=== PATIENT | female | born 1985 | race Caucasian/White ===

== ENCOUNTER 2017-04-08 13:41 | Emergency (ER) | payer OTHER ==
[2017-04-08 13:52] VITALS: BP 123/61; PULSE 77; TEMP 98.7; BMI 26.1
[2017-04-08 14:49] LABS: URINE APPEARANCE CLEAR; URINE BILIRUBIN NEGATIVE (NEGATIVE); URINE BLOOD NEGATIVE (NEGATIVE); URINE COLOR STRAW; URINE GLUCOSE (UA) NEGATIVE (NEGATIVE); URINE KETONE NEGATIVE (NEGATIVE); URINE LEUK ESTERASE NEGATIVE (NEGATIVE); URINE NITRITE NEGATIVE (NEGATIVE); URINE PROTEIN NEGATIVE (NEGATIVE); URINE UROBILINOGEN NEGATIVE E.U./dl (0.2-1.0)
[2017-04-08] MEDS ORDERED: KETOROLAC TROMETHAMINE 60 MG/2 ML VIAL IM ONE (15:39)
[2017-04-08] MEDS ORDERED: diazePAM 5 MG TABLET PO ONE (15:39)
--- NOTE | 2017-04-08 15:40 | PDOC ---
History of Present Illness - General Chief Complaint: Back Pain Stated Complaint: PAIN Time Seen by Provider: 04/08/17 15:13 History Source: Patient Exam Limitations: No Limitations - History of Present Illness Initial Comments: 04/08/17 15:43 My chief complaint: Lower back pain History of present illness: Patient is a 32-year-old female with no significant medical problems here today with lower back pain for one week. 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 Patient reports that back pain currently is an 8 out of 10. Patient has not been taking anything for pain. She has been going to the chiropractor for the last 4 days if pain is not relieved. Patient reports the pain is worse when trying to get up from a seated or lying position. Patient is unable to stand up erectly due to muscle spasm lower back. She reports some radiation down posterior legs without any saddle anesthesia or numbness of legs. Patient denies any incontinency. Patient reports this is the second time she has had back pain like this. 04/08/17 16:18 Occurred: reports: last week Severity: reports: moderate Pain Location: reports: back (lower back with radiation down legs ) Method of Injury: Yes: unknown Modifying Factors: improves with: None Loss of Consciousness: no loss of consciousness Past History - Past Medical History Allergies/Adverse Reactions: Allergies Allergy/AdvReac Type Severity Reaction Status Date / Time No Known Allergies Allergy Verified 04/08/17 13:50 Home Medications: Ambulatory Orders Cyclobenzaprine HCl [Flexeril 10 mg] 10 mg PO Q8H PRN #21 tablet 04/08/17 Ibuprofen [Motrin -] 600 mg PO Q6H PRN #18 tablet 04/08/17 Asthma: No Cancer: No Cardiac Disorders: No Diabetes: No HTN: No Seizures: No Thyroid Disease: No - Immunization History Immunization Up to Date: Yes - Psycho/Social/Smoking Cessation Hx Anxiety: No Suicidal Ideation: No Smoking History: Never smoked Have you smoked in the past 12 months: No Hx Alcohol Use: No Drug/Substance Use Hx: No Substance Use Type: None Hx Substance Use Treatment: No Review of Systems - Review of Systems Able to Perform ROS?: Yes Constitutional: No: Symptoms Reported HEENTM: No: Symptoms Reported Respiratory: No: Symptoms reported Cardiac (ROS): No: Symptoms Reported Musculoskeletal: Yes: Back Pain (lumbar paraspinal muscles ), Muscle Pain (with lumbar spasm ) Integumentary: No: Symptoms Reported Neurological: No: Symptoms reported *Physical Exam - Vital Signs Last Vital Signs Temp Pulse Resp BP Pulse Ox 98.7 F 77 18 123/61 99 04/08/17 13:50 04/08/17 13:50 04/08/17 13:50 04/08/17 13:50 04/08/17 13:50 - Physical Exam General Appearance: Yes: Appropriately Dressed Respiratory/Chest: positive: Lungs Clear, Normal Breath Sounds Cardiovascular: positive: Regular Rhythm, Regular Rate, S1, S2 Musculoskeletal: positive: Normal Inspection, Decreased Range of Motion (at waist), Muscle Spasm (b/l paraspinal muscle lumbar). negative: CVA Tenderness, CVA Tenderness (R), CVA Tenderness (L), Vertebral Tenderness Extremity: positive: Normal Capillary Refill, Normal Inspection, Normal Range of Motion Integumentary: positive: Normal Color Neurologic: positive: Alert, Normal Response, Motor Strength 5/5 (legs), Respond to painful stimul (legs), Responsive, Other (negative SLR b/l ). negative: Numbness, Sensory Deficit (legs) ED Treatment Course - ADDITIONAL ORDERS Additional order review: Laboratory Results 04/08/17 14:42 Urine Color Straw Urine Appearance Clear Urine pH 7.0 D Urine Protein Negative Urine Glucose (UA) Negative Urine Ketones Negative Urine Blood Negative Urine Nitrite Negative Urine Bilirubin Negative Urine Urobilinogen Negative Ur Leukocyte Esterase Negative Urine HCG, Qual Negative Medical Decision Making - Medical Decision Making 04/08/17 15:46 Patient is a 32-year-old female with no significant medical problems here today with lower back pain for one week. 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 Patient reports that back pain currently is an 8 out of 10. Patient has not been taking anything for pain. She has been going to the chiropractor for the last 4 days if pain is not relieved. Patient reports the pain is worse when trying to get up from a seated or lying position. Patient is unable to stand up erectly due to muscle spasm lower back. She reports some radiation down posterior legs without any saddle anesthesia or numbness of legs. Patient denies any incontinency. Patient reports this is the second time she has had back pain like this. low back pain with muscles spasm and radiculopathy down both legs Plan: Toradol 60 mg IM now Valium 5 mg po now Laboratory Tests 04/08/17 14:42 Urine Color Straw Urine Appearance Clear Urine pH 7.0 D Ur Specific Yoder Pending Urine Protein Negative Urine Glucose (UA) Negative Urine Ketones Negative Urine Blood Negative Urine Nitrite Negative Urine Bilirubin Negative Urine Urobilinogen Negative Ur Leukocyte Esterase Negative Urine HCG, Qual Negative 04/08/17 16:18 feeling better will discharge on flexeril 10 mg q 8 hr prn muscle spasm, ibuprofen 600 mg every 6 hrs prn pain ortho follow up *DC/Admit/Observation/Transfer Diagnosis at time of Disposition: Acute radicular low back pain, Muscle spasm of back - Discharge Dispostion Disposition: HOME Condition at time of disposition: Stable - Patient Instructions Additional Instructions: Follow-up with orthopedist in 2 days for further evaluation Use proper lifting technique sneaks and turning technique's as demonstrated emergency room Return to emergency room for worsening pain and lower back or legs or any numbness of legs or groin or private area Patient voiced understanding of discharge instructions and all questions were answered Seguimiento con ortopedista en 2 lopez para mir evaluacin posterior Utilice la tcnica de elevacin apropiada y las tcnicas de giro britt se demostr la pedro luis de emergencia Regreso a la pedro luis de emergencias para empeorar el dolor y bajar la espalda o las piernas o cualquier entumecimiento de las piernas o la leola o vinayak privada Comprensin del paciente sobre las instrucciones de mica y todas las preguntas fueron contestadas
[2017-04-08] MEDS ORDERED: diazePAM 5 MG TABLET ONE (15:42)
[2017-04-08] MEDS ORDERED: KETOROLAC TROMETHAMINE 30 MG/1 ML VIAL ONE (15:42)
== END 2017-04-08 16:47 | disposition home or self-care (01) ==
LOC: JERFT 13:41
PROC: 3E0233Z Introduction of Anti-inflammatory into Muscle, Percutaneous Approach (ICD-10-PCS; principal; 2017-04-08)
DX: M54.16 Radiculopathy, lumbar region (principal); M62.830 Muscle spasm of back
CPT/HCPCS: 81003; 84703; 99281-25

== ENCOUNTER 2017-05-12 06:58 | Emergency (ER) | payer OTHER ==
[2017-05-12 07:18] VITALS: BP 117/71; PULSE 68; TEMP 98.3; BMI 26.1
--- NOTE | 2017-05-12 08:39 | PDOC ---
History of Present Illness - General Chief Complaint: Rash Stated Complaint: RASH Time Seen by Provider: 05/12/17 08:29 History Source: Patient Exam Limitations: No Limitations - History of Present Illness Initial Comments: 05/12/17 08:35 32-year-old female with worsening itchy rash for the past 5 days. Patient states initially started on her legs and now spread to her torso causing her difficulty to sleep. Patient denies fever, chills but states was outside doing yardwork 2 days prior. Timing/Duration: getting worse Severity: mild Past History - Past Medical History Allergies/Adverse Reactions: Allergies Allergy/AdvReac Type Severity Reaction Status Date / Time No Known Allergies Allergy Verified 05/12/17 07:12 Home Medications: Ambulatory Orders Cyclobenzaprine HCl [Flexeril 10 mg] 10 mg PO Q8H PRN #21 tablet 04/08/17 Ibuprofen [Motrin -] 600 mg PO Q6H PRN #18 tablet 04/08/17 Diphenhydramine HCl [Benadryl -] 25 mg PO Q8H PRN #21 capsule 05/12/17 Prednisone [Deltasone -] 40 mg PO DAILY #8 tablet 05/12/17 Asthma: No Cancer: No Cardiac Disorders: No Diabetes: No HTN: No Seizures: No Thyroid Disease: No - Immunization History Immunization Up to Date: Yes - Psycho/Social/Smoking Cessation Hx Anxiety: No Suicidal Ideation: No Smoking History: Never smoked Have you smoked in the past 12 months: No Information on smoking cessation initiated: No Hx Alcohol Use: No Drug/Substance Use Hx: No Substance Use Type: None Hx Substance Use Treatment: No Patient Lives Alone: No Lives with/in: spouse/SO Review of Systems - Review of Systems Able to Perform ROS?: Yes Constitutional: No: Symptoms Reported Musculoskeletal: No: Symptoms Reported Integumentary: Yes: Pruritus *Physical Exam - Vital Signs Last Vital Signs Temp Pulse Resp BP Pulse Ox 98.3 F 68 18 117/71 100 05/12/17 07:12 05/12/17 07:12 05/12/17 07:12 05/12/17 07:12 05/12/17 07:12 - Physical Exam General Appearance: Yes: Nourished, Appropriately Dressed. No: Apparent Distress HEENT: positive: Pharynx Normal Respiratory/Chest: positive: Lungs Clear, Normal Breath Sounds. negative: Respiratory Distress, Accessory Muscle Use Cardiovascular: positive: Regular Rhythm, Regular Rate. negative: Murmur Extremity: positive: Normal Inspection Integumentary: positive: Rash (crusted and scattered vesicles to bilateral upper legs, arms, and abdomen/chest/neck. areas of linear patterns noted arms), Other (no signs and symptoms of infection) Neurologic: positive: Motor Strength 5/5 (ambulatory) Medical Decision Making - Medical Decision Making 05/12/17 08:38 Patient with pruritic rash for the past 5 days worsening in severity now spreading. Patient appears to have poison mary ellen. Patient will be ordered for prednisone and Benadryl for discharge. *DC/Admit/Observation/Transfer Diagnosis at time of Disposition: Poison mary ellen dermatitis - Discharge Dispostion Disposition: HOME Condition at time of disposition: Good - Prescriptions Prescriptions: Diphenhydramine HCl [Benadryl -] 25 mg PO Q8H PRN #21 capsule PRN Reason: For Itching Prednisone [Deltasone -] 40 mg PO DAILY #8 tablet - Patient Instructions Printed Discharge Instructions: DI for Poison Mary Ellen Allergy Additional Instructions: Please take medication as prescribed. please wash her hands recently. please avoid itching. Stay in cold cold places to avoid irritation
== END 2017-05-12 09:00 | disposition home or self-care (01) ==
LOC: JERFT 06:58 → JER 06:58 → JERFT 09:00
DX: L23.7 Allergic contact dermatitis due to plants, except food (principal)
CPT/HCPCS: 99281-25

== ENCOUNTER 2018-02-20 20:23 | Emergency (ER) | payer OTHER ==
[2018-02-20 20:35] VITALS: BP 110/57; PULSE 84; TEMP 98.2; BMI 27.4
--- NOTE | 2018-02-20 20:35 | PDOC ---
Rapid Medical Evaluation Time Seen by Provider: 02/20/18 20:29 Medical Evaluation: Allergies Allergy/AdvReac Type Severity Reaction Status Date / Time No Known Allergies Allergy Verified 05/12/17 07:12 02/20/18 20:29 I have performed a brief in-person evaluation of this patient. The patient presents with a chief complaint of diarrhea, nausea and rash. States rash on legs x 2 days and nausea and diarrhea this am. Reports a little abdominal discomfort. Pertinent physical exam finding are NAD lungs clear bilaterally +bowel sounds, mild tenderness with deep palpation I have ordered the following: labs The patient will proceed to the ED for further evaluation.
[2018-02-20] MEDS ORDERED: SODIUM CHLORIDE 1,000 ML IV STA (21:03)
[2018-02-20] MEDS ORDERED: LORATADINE 10 MG TABLET PO ONE (21:04)
[2018-02-20] MEDS ORDERED: LORATADINE 10 MG TABLET ONE (21:15)
[2018-02-20 21:34] LABS: BASO % 0.4 % (0-2.0); EOS % 2.6 % (0-4.5); HEMATOCRIT 38.2 % (32.4-45.2); HEMOGLOBIN 13.4 GM/dL (10.7-15.3); LYMPH % 26.4 % (8-40); MCH 30.3 pg (25.7-33.7); MCHC 35.1 g/dl (32.0-36.0); MEAN CELL VOLUME 86.3 fl (80-96); MEAN PLT VOLUME 8.8 fl (7.5-11.1); MONO % 7.4 % (3.8-10.2); NEUT % 63.2 % (42.8-82.8); PLATELET COUNT 183 K/MM3 (134-434); RBC 4.42 M/mm3 (3.60-5.2); RDW 13.2 % (11.6-15.6); WHITE BLOOD COUNT 6.5 K/mm3 (4.0-10.0)
[2018-02-20 22:17] LABS: ALBUMIN 4.1 g/dl (3.4-5.0); ANION GAP 4 (8-16); BILIRUBIN,TOTAL 0.6 mg/dL (0.2-1.0); BLOOD UREA NITROGEN 17 mg/dL (7-18); CHLORIDE 110 mmol/L (98-107); CO2 26 mmol/L (21-32); CREATININE 0.5 mg/dL (0.55-1.02); GLUCOSE,RANDOM 85 mg/dL (74-106); SGPT/ALT 84 U/L (12-78); SODIUM 140 mmol/L (136-145); TOT PROT 7.3 g/dl (6.4-8.2)
[2018-02-20 22:18] LABS: ALK PHOS 89 U/L (45-117); POTASSIUM 3.7 mmol/L (3.5-5.1)
[2018-02-20 22:19] LABS: SGOT/AST 46 U/L (15-37)
--- NOTE | 2018-02-20 22:34 | PDOC ---
History of Present Illness - General History Source: Patient Exam Limitations: No Limitations - History of Present Illness Initial Comments: 02/20/18 22:34 The patient is a 33 year old female with no significant PMH who presents to the emergency department with 1 day of nausea and diarrhea and 2 days of LE rash. The patient reports a sudden onset of diarrhea this morning with associated nausea and diffuse abdominal discomfort. She describes her rash as redness and itching bilaterally on her lower extremities along the calves. The patient denies sick contacts. She denies allergies to food or medications. She denies fevers or chills. She denies vomiting. The patient denies chest pain, shortness of breath, headache and dizziness. Denies dysuria, frequency, urgency and hematuria. Allergies: NKA Past surgical history: x2. Social history: No reported cigarette, alcohol, or drug use. PCP: None reported. <Bc Gayle - Last Filed: 02/20/18 22:34> - General History Source: Patient <Dago Malone - Last Filed: 02/21/18 01:04> - General Chief Complaint: Pain Stated Complaint: RASH Time Seen by Provider: 02/20/18 20:29 Past History <Bc Gayle - Last Filed: 02/20/18 22:34> - Past Medical History Asthma: No Cancer: No Cardiac Disorders: No COPD: No Diabetes: No HTN: No Seizures: No Thyroid Disease: No - Immunization History Immunization Up to Date: Yes - Suicide/Smoking/Psychosocial Hx Smoking History: Never smoked Have you smoked in the past 12 months: No Information on smoking cessation initiated: No Hx Alcohol Use: No Drug/Substance Use Hx: No Substance Use Type: None Hx Substance Use Treatment: No <Dago Malone - Last Filed: 02/21/18 01:04> - Past Medical History Allergies/Adverse Reactions: Allergies Allergy/AdvReac Type Severity Reaction Status Date / Time No Known Allergies Allergy Verified 02/20/18 20:35 Home Medications: Ambulatory Orders Cyclobenzaprine HCl [Flexeril 10 mg] 10 mg PO Q8H PRN #21 tablet 04/08/17 Ibuprofen [Motrin -] 600 mg PO Q6H PRN #18 tablet 04/08/17 Diphenhydramine HCl [Benadryl -] 25 mg PO Q8H PRN #21 capsule 05/12/17 predniSONE [Deltasone -] 40 mg PO DAILY #8 tablet 05/12/17 Famotidine [Pepcid] 40 mg PO DAILY #30 tablet 02/21/18 Ibuprofen [Motrin] 600 mg PO TID #30 tablet 02/21/18 Ondansetron [Zofran *Odt*] 4 mg SL TID #30 od.tablet 02/21/18 Review of Systems - Review of Systems Able to Perform ROS?: Yes Comments:: 02/20/18 22:34 CONSTITUTIONAL: Absent: fever, chills, diaphoresis, generalized weakness, malaise, loss of appetite HEENT: Absent: rhinorrhea, nasal congestion, throat pain, throat swelling, difficulty swallowing, mouth swelling, ear pain, eye pain, visual Changes CARDIOVASCULAR: Absent: chest pain, syncope, palpitations, irregular heart rate, lightheadedness , peripheral edema RESPIRATORY: Absent: cough, shortness of breath, dyspnea with exertion, orthopnea, wheezing, stridor, hemoptysis GASTROINTESTINAL: (+) Nausea. (+) Diarrhea. Absent: abdominal pain, abdominal distension, nausea, vomiting, diarrhea, constipation, melena, hematochezia GENITOURINARY: Absent: dysuria, frequency, urgency, hesitancy, hematuria, flank pain, genital pain MUSCULOSKELETAL: Absent: myalgia, arthralgia, joint swelling SKIN: (+) Bilateral LE rash with associated itching. Absent: pallor. HEMATOLOGIC/IMMUNOLOGIC: Absent: easy bleeding, easy bruising, lymphadenopathy, frequent infections ENDOCRINE: Absent: unexplained weight gain, unexplained weight loss, heat intolerance, cold intolerance NEUROLOGIC: Absent: headache, focal weakness or paresthesias, dizziness, unsteady gait, seizure, mental status changes, bladder or bowel incontinence PSYCHIATRIC: Absent: anxiety, depression, suicidal or homicidal ideation, hallucinations. <Bc Gayle - Last Filed: 02/20/18 22:34> *Physical Exam - Vital Signs Last Vital Signs Temp Pulse Resp BP Pulse Ox 98.2 F 84 18 110/57 100 02/20/18 20:31 02/20/18 20:31 02/20/18 20:31 02/20/18 20:31 02/20/18 20:31 - Physical Exam Comments: 02/20/18 22:34 GENERAL: Well developed, well nourished. Awake and alert. No acute distress. HEENT: Normocephalic, atraumatic. PERRLA, EOMI. No conjunctival pallor. Sclera are non- icteric. Moist mucous membranes. Oropharynx is clear. NECK: Supple. Full ROM. No JVD. Carotid pulses 2+ and symmetric, without bruits. No thyromegaly. No lymphadenopathy. CARDIOVASCULAR: Regular rate and rhythm. No murmurs, rubs, or gallops. Distal pulses are 2+ and symmetric. PULMONARY: No evidence of respiratory distress. Lungs clear to auscultation bilaterally. No wheezing, rales or rhonchi. ABDOMINAL: (+) Slightly hyperactive bowel sounds. Soft. Non-tender. Non-distended. No rebound or guarding. No organomegaly. Normoactive bowel sounds. MUSCULOSKELETAL Normal range of motion at all joints. No bony deformities or tenderness. No CVA tenderness. EXTREMITIES: No cyanosis. No clubbing. No edema. No calf tenderness. SKIN: (+) Bilateral lower extremity rash, urticarial lesions. Warm and dry. Normal capillary refill. No jaundice. NEUROLOGICAL: Alert, awake, appropriate. Cranial nerves 2-12 intact. No deficits to light touch and temperature in face, upper extremities and lower extremities. No motor deficits in the in face, upper extremities and lower extremities. Normoreflexic in the upper and lower extremities. Normal speech. Toes are downgoing bilaterally. Gait is normal without ataxia. PSYCHIATRIC: Cooperative. Good eye contact. Appropriate mood and affect. <Bc Gayle - Last Filed: 02/20/18 22:34> - Vital Signs Last Vital Signs Temp Pulse Resp BP Pulse Ox 98.2 F 84 18 110/57 100 02/20/18 20:31 02/20/18 20:31 02/20/18 20:31 02/20/18 20:31 02/20/18 20:31 <Dago Malone - Last Filed: 02/21/18 01:04> ED Treatment Course - LABORATORY CBC & Chemistry Diagram: 02/20/18 21:27 02/20/18 21:27 - ADDITIONAL ORDERS Additional order review: Laboratory Results 02/20/18 21:27 Sodium 140 Potassium 3.7 Chloride 110 H Carbon Dioxide 26 Anion Gap 4 L BUN 17 Creatinine 0.5 L Creat Clearance w eGFR > 60 Random Glucose 85 Calcium 8.0 L Total Bilirubin 0.6 AST 46 H ALT 84 H Alkaline Phosphatase 89 Total Protein 7.3 Albumin 4.1 02/20/18 21:27 RBC 4.42 D MCV 86.3 MCHC 35.1 RDW 13.2 MPV 8.8 Neutrophils % 63.2 Lymphocytes % 26.4 D Monocytes % 7.4 Eosinophils % 2.6 D Basophils % 0.4 - Medications Given in the ED: ED Medications Discontinued Medications Generic Name Dose Route Start Last Admin Trade Name Freq PRN Reason Stop Dose Admin Sodium Chloride 1,000 mls @ 1,000 mls/hr 02/20/18 21:03 02/20/18 21:29 Normal Saline - IV 02/20/18 22:02 1,000 mls/hr ASDIR STA Administration Loratadine 10 mg 02/20/18 21:04 02/20/18 21:29 Claritin - PO 02/20/18 21:05 10 mg ONCE ONE Administration <Bc Gayle - Last Filed: 02/20/18 22:34> - LABORATORY CBC & Chemistry Diagram: 02/20/18 21:27 02/20/18 21:27 - ADDITIONAL ORDERS Additional order review: Laboratory Results 02/20/18 21:27 Sodium 140 Potassium 3.7 Chloride 110 H Carbon Dioxide 26 Anion Gap 4 L BUN 17 Creatinine 0.5 L Creat Clearance w eGFR > 60 Random Glucose 85 Calcium 8.0 L Total Bilirubin 0.6 AST 46 H ALT 84 H Alkaline Phosphatase 89 Total Protein 7.3 Albumin 4.1 02/20/18 21:27 RBC 4.42 D MCV 86.3 MCHC 35.1 RDW 13.2 MPV 8.8 Neutrophils % 63.2 Lymphocytes % 26.4 D Monocytes % 7.4 Eosinophils % 2.6 D Basophils % 0.4 - Medications Given in the ED: ED Medications Discontinued Medications Generic Name Dose Route Start Last Admin Trade Name Freq PRN Reason Stop Dose Admin Sodium Chloride 1,000 mls @ 1,000 mls/hr 02/20/18 21:03 02/20/18 21:29 Normal Saline - IV 02/20/18 22:02 1,000 mls/hr ASDIR STA Administration Loratadine 10 mg 02/20/18 21:04 02/20/18 21:29 Claritin - PO 02/20/18 21:05 10 mg ONCE ONE Administration <Dago Malone - Last Filed: 02/21/18 01:04> Medical Decision Making - Medical Decision Making 02/21/18 01:03 Dr. Malone: The scribe's documentation has been prepared under my direction and personally reviewed by me in its entirery. I confirm that the note above accurately reflects all work, treatment, procedures, and medical decision making performed by me. <Dago Malone - Last Filed: 02/21/18 01:04> *DC/Admit/Observation/Transfer - Attestations Scribe Attestion: 02/20/18 22:35 Documentation prepared by Bc Gayle, acting as medical office worker for Dago Malone DO. <Bc Gayle - Last Filed: 02/20/18 22:34> - Discharge Dispostion Admit: No <Dago Malone - Last Filed: 02/21/18 01:04> Diagnosis at time of Disposition: Gallstone (impacted) - Discharge Dispostion Disposition: HOME Condition at time of disposition: Stable - Referrals Referrals: Gino Box MD [Staff Physician] - Trey Patterson MD [Staff Physician] - Campbell Carney MD [Staff Physician] - - Patient Instructions Printed Discharge Instructions: DI for Gallstones Print Language: TELUGU - Post Discharge Activity Forms/Work/School Notes: Back to Work
== END 2018-02-21 01:15 | disposition home or self-care (01) ==
LOC: JER 20:23
PROC: 3E0337Z Introduction of Electrolytic and Water Balance Substance into Peripheral Vein, Percutaneous Approach (ICD-10-PCS; principal; 2018-02-20)
DX: K80.20 Calculus of gallbladder without cholecystitis without obstruction (principal); L50.9 Urticaria, unspecified
CPT/HCPCS: 36415; 76705-TC; 80053; 85025; 96360; 99283-25; J7030

== ENCOUNTER 2018-10-26 19:37 | Emergency (ER) | payer OTHER ==
--- NOTE | 2018-10-26 20:14 | PDOC ---
Rapid Medical Evaluation Medical Evaluation: Allergies Allergy/AdvReac Type Severity Reaction Status Date / Time No Known Allergies Allergy Verified 02/20/18 20:35 10/26/18 20:11 I have performed a brief in-person evaluation of this patient. The patient presents with a chief complaint of:itchy rash to face, arms for 5 days. no vomiting or diff breathing. and daughter with same symptoms. states he is using permetherin cream with no relief. Pertinent physical exam findings:red rash to face, upper neck and arms I have ordered the following:none The patient will proceed to the ED for further evaluation.
[2018-10-26 20:15] VITALS: BP 114/71; PULSE 72; TEMP 98.3; BMI 23.8
[2018-10-26] MEDS ORDERED: diphenhydrAMINE HCL 25 MG CAPSULE (FP) PO ONE ×2 (20:34→20:36)
[2018-10-26] MEDS ORDERED: predniSONE 20 MG TABLET (UD) PO ONE (20:34)
[2018-10-26] MEDS ORDERED: predniSONE 20 MG TABLET (UD) ONE (20:36)
--- NOTE | 2018-10-26 20:41 | PDOC ---
History of Present Illness - General Chief Complaint: Rash Stated Complaint: RASH Time Seen by Provider: 10/26/18 20:23 History Source: Patient Exam Limitations: No Limitations - History of Present Illness Initial Comments: 10/26/18 20:35 3-year-old female presents to ED with a pruritic rash for the past 5 days involving her face her neck or arms and upper torso. Patient states and daughter with similar symptoms which began on Monday. Daughter is being treated with triamcinolone by the metal or wood blocker and hasn't was given permethrin by an ER provider. Both parents states no relief with any of the medications. Parents state 2 days prior to the onset of the rash the daughter was at the grandmother' s house outside but unsure of contact with branches or roots. Timing/Duration: reports: other Severity: Yes: mild Location: reports: extremities, face, torso Respiratory Risk Factors: reports: no cause identified Associated Symptoms: reports: rash Past History - Travel Traveled outside of the country in the last 30 days: No - Past Medical History Allergies/Adverse Reactions: Allergies Allergy/AdvReac Type Severity Reaction Status Date / Time No Known Allergies Allergy Verified 02/20/18 20:35 Home Medications: Ambulatory Orders NK [No Known Home Medication] 10/26/18 Asthma: No Cancer: No Cardiac Disorders: No COPD: No Diabetes: No HTN: No Seizures: No Thyroid Disease: No - Immunization History Immunization Up to Date: Yes - Suicide/Smoking/Psychosocial Hx Smoking History: Never smoked Have you smoked in the past 12 months: No Hx Alcohol Use: No Drug/Substance Use Hx: No Substance Use Type: None Hx Substance Use Treatment: No Patient Lives Alone: No Lives with/in: spouse/SO Review of Systems - Review of Systems Able to Perform ROS?: No Constitutional: No: Symptoms Reported HEENTM: No: Symptoms Reported Respiratory: No: Symptoms reported Cardiac (ROS): No: Symptoms Reported ABD/GI: No: Symptoms Reported : No: Symptoms Reported Musculoskeletal: No: Symptoms Reported Integumentary: Yes: Pruritus, Rash Neurological: No: Symptoms reported *Physical Exam - Vital Signs Last Vital Signs Temp Pulse Resp BP Pulse Ox 98.3 F 72 19 114/71 100 10/26/18 20:11 10/26/18 20:11 10/26/18 20:11 10/26/18 20:11 10/26/18 20:11 - Physical Exam General Appearance: Yes: Nourished, Appropriately Dressed. No: Apparent Distress HEENT: positive: EOMI, SAUMYA, TMs Normal, Pharynx Normal. negative: Pale Conjunctivae Respiratory/Chest: positive: Lungs Clear, Normal Breath Sounds. negative: Respiratory Distress, Accessory Muscle Use Cardiovascular: positive: Regular Rhythm, Regular Rate. negative: Murmur Gastrointestinal/Abdominal: positive: Soft. negative: Tenderness Integumentary: positive: Warm, Rash, Other (erythematous pruritic vesicular/ papular rash to face, neck, arms, and upper torso) Neurologic: positive: Motor Strength 5/5 (ambulatory) Moderate Sedation - Procedure Monitoring Vital Signs: Procedure Monitoring Vital Signs Temperature 98.3 F 10/26/18 20:11 Pulse Rate 72 10/26/18 20:11 Respiratory Rate 19 10/26/18 20:11 Blood Pressure 114/71 10/26/18 20:11 O2 Sat by Pulse Oximetry (%) 100 10/26/18 20:11 Medical Decision Making - Medical Decision Making 10/26/18 20:41 CC: pruritic rash x 5 days Exam: vesicular/ papular rash to body Plan: contact dermatitis . treat w/ dph and benadryl here in the ED *DC/Admit/Observation/Transfer Diagnosis at time of Disposition: Rash - Discharge Dispostion Disposition: HOME - Referrals - Patient Instructions Printed Discharge Instructions: DI for Contact Dermatitis Additional Instructions: Please take benadryl and prednisone as prescribed. Wash hands frequently. Return to the ED if s/s worsen. - Post Discharge Activity
== END 2018-10-26 20:52 | disposition home or self-care (01) ==
LOC: JERFT 19:37
DX: L40.9 Psoriasis, unspecified (principal); L25.9 Unspecified contact dermatitis, unspecified cause
CPT/HCPCS: 99281-25

== ENCOUNTER 2019-08-12 18:58 | Emergency (ER) | payer OTHER ==
[2019-08-12 19:07] VITALS: BP 108/62; PULSE 72; TEMP 98.2; BMI 23.6
--- NOTE | 2019-08-12 19:47 | PDOC ---
History of Present Illness - General Chief Complaint: Rash Stated Complaint: L LEG ITCHY/PAIN Time Seen by Provider: 08/12/19 19:19 - History of Present Illness Initial Comments: 08/12/19 19:42 34-year-old female without comorbidities presents for evaluation of a painful area which is been increasingly expanding and more painful over the last 5 days this area is located on the posterior aspect of the left leg. She denies systemic symptoms. Past History - Past Medical History Allergies/Adverse Reactions: Allergies Allergy/AdvReac Type Severity Reaction Status Date / Time No Known Allergies Allergy Verified 02/20/18 20:35 Home Medications: Ambulatory Orders predniSONE [Deltasone -] 60 mg PO DAILY #15 tablet 10/26/18 Cephalexin [Keflex] 500 mg PO QID #40 capsule 08/12/19 Sulfamethoxazole/Trimethoprim [Bactrim Ds -] 1 tab PO BID #14 tablet 08/12/19 Asthma: No Cancer: No Cardiac Disorders: No COPD: No Diabetes: No HTN: No Seizures: No Thyroid Disease: No - Immunization History Immunization Up to Date: Yes - Psycho Social/Smoking Cessation Hx Smoking History: Never smoked Have you smoked in the past 12 months: No Hx Alcohol Use: No Drug/Substance Use Hx: No Substance Use Type: None Hx Substance Use Treatment: No Review of Systems - Review of Systems Constitutional: No: Fever Integumentary: Yes: Erythema *Physical Exam - Vital Signs Last Vital Signs Temp Pulse Resp BP Pulse Ox 98.2 F 72 17 108/62 99 08/12/19 19:05 08/12/19 19:05 08/12/19 19:05 08/12/19 19:05 08/12/19 19:05 - Physical Exam Comments: 08/12/19 19:43 HEAD: NC/AT EYES: Conjuntiva clear MS: Full ROM in all joints without edema NEUROLOGIC: No gross sensory or motor deficits, NVID SKIN: Normal color and temperature no lesions or rashes; there is a 8 cm circumferential erythemic area with induration mild warmth no sensitivity or focal fluctuance on the distal aspect of the posterior left lower extremity the thigh and calf are soft and nontender and there were no gross sensorimotor deficits Medical Decision Making - Medical Decision Making 08/12/19 19:44 Expanding erythema appears to be cellulitic however the area is not warm. There is induration and tenderness. Discharge - Discharge Information Problems reviewed: Yes Clinical Impression/Diagnosis: Cellulitis Condition: Stable Disposition: HOME - Admission No - Additional Discharge Information Prescriptions: Cephalexin [Keflex] 500 mg PO QID #40 capsule Sulfamethoxazole/Trimethoprim [Bactrim Ds -] 1 tab PO BID #14 tablet - Follow up/Referral Referrals: Bruce Lara MD [Staff Physician] - - Patient Discharge Instructions Patient Printed Discharge Instructions: Cellulitis, DI for Cellulitis -- Adult Additional Instructions: Please take the antibiotics as directed. Return to the emergency room for worsening symptoms. Without fail, please follow-up with your primary care physician in 1 to 2 days for further evaluation and treatment options. - Post Discharge Activity
== END 2019-08-12 19:56 | disposition home or self-care (01) ==
LOC: JERFT 18:58
DX: L03.116 Cellulitis of left lower limb (principal)
CPT/HCPCS: 99281-25

== ENCOUNTER 2019-12-05 20:57 | Emergency (ER) | payer OTHER ==
--- NOTE | 2019-12-05 21:34 | PDOC ---
Rapid Medical Evaluation Chief Complaint: Sore Throat Time Seen by Provider: 12/05/19 21:30 Medical Evaluation: Allergies Allergy/AdvReac Type Severity Reaction Status Date / Time No Known Allergies Allergy Verified 02/20/18 20:35 12/05/19 21:31 I have performed a brief in-person evaluation of this patient. The patient presents with a chief complaint of:sorethroat pain x 5 days- taking amox x 4 days, with minimal resolve. Mult family members with throat infections. Pertinent physical exam findings: pale/ throat with mild redness/ airway clear I have ordered the following: nothing The patient will proceed to the ED for further evaluation. Discharge Disposition - Diagnosis Throat pain in adult - Discharge Dispostion Condition at time of disposition: Stable - Referrals - Patient Instructions - Post Discharge Activity
[2019-12-05 21:38] VITALS: BP 107/79; PULSE 73; TEMP 97.9; BMI 23.1
[2019-12-05] MEDS ORDERED: ALBUTEROL SO4 2.5/IPRATROPIUM 0.5 INH SOL 3 ML VIAL.NEB. NEB ONE (22:21)
--- NOTE | 2019-12-05 22:46 | PDOC ---
History of Present Illness - General Chief Complaint: Sore Throat Stated Complaint: FEVER Time Seen by Provider: 12/05/19 21:30 History Source: Patient - History of Present Illness Initial Comments: 12/05/19 22:43 Chief complaint: Body aches and sore throat Patient is a 34-year-old female that got sick on Monday, started amoxicillin on Monday because her children had strep and were on amoxicillin. Patient complaining of body aches. Patient also complaining of throat pain. She took one amoxicillin on Monday and took 2 the rest of the days through today. Patient is eating and drinking. Patient took 2 Advil at 4 PM did not take any earlier today. No vomiting. GENERAL/CONSTITUTIONAL: No fever, weakness. dizziness HEAD, EYES, EARS, NOSE AND THROAT: No change in vision. No ear pain or discharge. No sore throat. CARDIOVASCULAR: No chest pain RESPIRATORY: No shortness of breath +cough GASTROINTESTINAL: No pain, nausea, vomiting, diarrhea or constipation GENITOURINARY: No dysuria MUSCULOSKELETAL: No neck or back pain SKIN: No rash NEUROLOGIC: No headache, vertigo, loss of consciousness, or loss of sensation. GENERAL: The patient is awake, alert, and fully oriented, in no acute distress. HEAD: Normal with no signs of trauma. EYES: Pupils equal, round and reactive to light, sclera anicteric, conjunctiva clear. ENT: pharynx: minimal erythema, no exudate, uvula midline NECK: supple CHEST: Coughs when she takes a breath, and wheezing, nontender, rr ABD: soft, nontender BACK: no tenderness or signs of injury EXTREMITIES: Normal range of motion, no edema. NEUROLOGICAL: Normal speech, normal gait. SKIN: Warm, Dry 12/05/19 22:48 Past History - Past Medical History Allergies/Adverse Reactions: Allergies Allergy/AdvReac Type Severity Reaction Status Date / Time No Known Allergies Allergy Verified 02/20/18 20:35 Home Medications: Ambulatory Orders predniSONE [Deltasone -] 60 mg PO DAILY #15 tablet 10/26/18 Cephalexin [Keflex] 500 mg PO QID #40 capsule 08/12/19 Sulfamethoxazole/Trimethoprim [Bactrim Ds -] 1 tab PO BID #14 tablet 08/12/19 Asthma: No Cancer: No Cardiac Disorders: No COPD: No Diabetes: No HTN: No Seizures: No Thyroid Disease: No - Immunization History Immunization Up to Date: Yes - Psycho Social/Smoking Cessation Hx Smoking History: Never smoked Have you smoked in the past 12 months: No Information on smoking cessation initiated: No Hx Alcohol Use: No Drug/Substance Use Hx: No Substance Use Type: None Hx Substance Use Treatment: No *Physical Exam - Vital Signs Last Vital Signs Temp Pulse Resp BP Pulse Ox 97.9 F 73 18 107/79 99 12/05/19 21:32 12/05/19 21:32 12/05/19 21:32 12/05/19 21:32 12/05/19 21:32 ED Treatment Course - RADIOLOGY Radiology Studies Ordered: Category Date Time Status CHEST PA & LAT [RAD] Stat Radiology 12/05/19 22:22 Taken - Medications Given in the ED: ED Medications Discontinued Medications Generic Name Dose Route Start Last Admin Trade Name Freq PRN Reason Stop Dose Admin Albuterol/Ipratropium 1 amp 12/05/19 22:21 12/05/19 22:25 Apolonia - NEB 12/05/19 22:22 1 amp ONCE ONE Administration Medical Decision Making - Medical Decision Making 12/05/19 22:45 34-year-old female who is on amoxicillin because her kids had strep last week with body aches, sore throat and cough. Patient took Advil at 4 PM, is not febrile and does not appear acutely ill. No difficulty speaking or swallowing. Patient symptoms are not obviously consistent with strep, her cough sounds virally, she has some wheezing on cough although her lungs are clear. Will send flu swab. As patient is already on antibiotics no strep will be sent. Due to cough and length of symptoms, patient will get chest x-ray, Apolonia Signed out to Kadeem Summers NP 12/05/19 22:48 Discharge - Discharge Information Problems reviewed: Yes Clinical Impression/Diagnosis: Cough - Follow up/Referral - Patient Discharge Instructions - Post Discharge Activity
--- NOTE | 2019-12-06 00:03 | PDOC ---
*Physical Exam - Vital Signs Last Vital Signs Temp Pulse Resp BP Pulse Ox 97.9 F 73 18 107/79 99 12/05/19 21:32 12/05/19 21:32 12/05/19 21:32 12/05/19 21:32 12/05/19 21:32 - Physical Exam General Appearance: Yes: Appropriately Dressed. No: Apparent Distress HEENT: positive: Normal Voice, TMs Normal, Pharyngeal Erythema. negative: Tonsillar Exudate, Tonsillar Erythema Neck: positive: Trachea midline, Lymphadenopathy (R), Lymphadenopathy (L). negative: Stridor Respiratory/Chest: positive: Lungs Clear, Normal Breath Sounds. negative: Respiratory Distress, Accessory Muscle Use Cardiovascular: positive: Regular Rhythm, Regular Rate ED Treatment Course - Medications Given in the ED: ED Medications Discontinued Medications Generic Name Dose Route Start Last Admin Trade Name Freq PRN Reason Stop Dose Admin Albuterol/Ipratropium 1 amp 12/05/19 22:21 12/05/19 22:25 Duoneb - NEB 12/05/19 22:22 1 amp ONCE ONE Administration ED Progress Note - Progress Note Progress Note: 12/06/19 00:00 Received signout from nurse practitioner Long Briefly this is a 34-year-old woman taken amoxicillin for strep throat now with 1 week of body aches, sore throat, cough and intermittent fevers. Influenza testing is negative Chest x-ray ordered Disposition pending chest x-ray results and reevaluation Medical Decision Making - Medical Decision Making 12/06/19 00:02 X-ray as read by me: Angles sharp. Cardiac silhouette is within normal limits. No focal infiltrates or consolidations noted. Repeat lung exam reveals clear lungs. Supportive treatment of symptoms has been discussed with the patient and she has been encouraged to continue taking her amoxicillin as previously prescribed. Patient has been instructed to throw away her toothbrush after 3 days of antibiotics. Discharge home Discharge - Discharge Information Problems reviewed: Yes Clinical Impression/Diagnosis: Cough Condition: Stable Disposition: HOME - Admission No - Follow up/Referral - Patient Discharge Instructions Additional Instructions: Rest, drink lots of fluids: Teas, water, soups, Pedialyte Saltwater gargles Steamy showers/seem to face break up mucus Avoid contact with others until fevers and cough resolved Lots of handwashing and good hygiene Continue [id number] medications for symptomatic relief Tylenol or Motrin for fever and pain Followup with private physician in one to 2 days as needed Return to emergency department for worsened symptoms, fevers, dehydration El iramorehanos lquidos: ts, agua, sopas, Pedialyte grgaras de agua salada Duchas Steamy / parecen enfrentar aflojar la mucosidad Evite el contacto con otras personas hasta que la fiebre y la tos resueltos Un montn de lavado de sudhir y la higiene Continuar [id number] medicamentos para el alivio sintomtico Tylenol o Motrin para la fiebre y el dolor Followup con el mdico privado en [place] o 2 lopez segn sea necesario Regresar a urgencias por sntomas empeoraron, fiebres, deshidratacin - Post Discharge Activity
== END 2019-12-06 00:09 | disposition home or self-care (01) ==
LOC: JER 20:57 → JERFT 20:57
PROC: 3E0F7GC Introduction of Other Therapeutic Substance into Respiratory Tract, Via Natural or Artificial Opening (ICD-10-PCS; principal; 2019-12-05)
DX: R05 Cough (principal)
CPT/HCPCS: 71046-TC-FY; 87804; 99282-25

== ENCOUNTER 2021-01-24 11:29 | Emergency (ER) | payer OTHER ==
[2021-01-24 11:33] VITALS: BP 117/65; PULSE 73; TEMP 97; BMI 24.9
[2021-01-24] MEDS ORDERED: KETOROLAC TROMETHAMINE 30 MG/1 ML VIAL IM ONE (11:51)
[2021-01-24] MEDS ORDERED: KETOROLAC TROMETHAMINE 30 MG/1 ML VIAL ONE (11:53)
== END 2021-01-24 12:56 | disposition home or self-care (01) ==
LOC: JERFT 11:29
PROC: 3E0233Z Introduction of Anti-inflammatory into Muscle, Percutaneous Approach (ICD-10-PCS; principal; 2021-01-24)
DX: M54.41 Lumbago with sciatica, right side (principal)
CPT/HCPCS: 99284-25

== ENCOUNTER 2021-09-26 17:03 | Emergency (ER) | payer OTHER ==
[2021-09-26 17:19] VITALS: BP 114/70; PULSE 79; TEMP 97; BMI 23.1
[2021-09-26] MEDS ORDERED: KETOROLAC TROMETHAMINE 15 MG/ML VIAL IVPUSH ONE ×2 (18:12→20:08)
[2021-09-26] MEDS ORDERED: KETOROLAC TROMETHAMINE 15 MG/ML VIAL ONE ×2 (18:15→20:11)
[2021-09-26 18:51] LABS: BASO % 1.1 % (0-2.0); EOS % 3.3 % (0-4.5); HEMATOCRIT 34.2 % (32.4-45.2); LYMPH % 28.9 % (8-40); MCH 23.9 pg (25.7-33.7); MCHC 32.1 g/dl (32.0-36.0); MEAN CELL VOLUME 74.5 fl (80-96); MEAN PLT VOLUME 9.2 fl (7.5-11.1); MONO % 5.3 % (3.8-10.2); NEUT % 61.4 % (42.8-82.8); PLATELET COUNT 213 10^3/uL (134-434); RBC 4.59 M/mm3 (3.60-5.2); RDW 15.6 % (11.6-15.6); WHITE BLOOD COUNT 6.3 K/mm3 (4.0-10.0)
[2021-09-26 18:56] LABS: CHLORIDE 110 mmol/L (98-107); SODIUM 140 mmol/L (136-145)
[2021-09-26 18:59] LABS: BLOOD UREA NITROGEN 19.7 mg/dL (7-18); CALCIUM 8.4 mg/dL (8.5-10.1)
[2021-09-26 19:00] LABS: ALBUMIN 3.4 g/dl (3.4-5.0); ANION GAP 8 MMOL/L (8-16); CO2 22 mmol/L (21-32); GLUCOSE,RANDOM 105 mg/dL (74-106)
[2021-09-26 19:03] LABS: CREATININE 0.7 mg/dL (0.55-1.3); SGOT/AST 35 U/L (15-37); SGPT/ALT 29 U/L (13-61)
[2021-09-26 19:04] LABS: BILIRUBIN,TOTAL 0.4 mg/dL (0.2-1); TOT PROT 7.3 g/dl (6.4-8.2)
[2021-09-26 19:05] LABS: ALK PHOS 64 U/L (45-117)
[2021-09-26 20:03] LABS: PH,URINE 5.5 (5.0-8.0); URINE APPEARANCE CLEAR; URINE BILIRUBIN NEGATIVE (NEGATIVE); URINE COLOR YELLOW; URINE GLUCOSE (UA) NEGATIVE (NEGATIVE); URINE KETONE TRACE (NEGATIVE); URINE LEUK ESTERASE NEGATIVE (NEGATIVE); URINE NITRITE NEGATIVE (NEGATIVE); URINE PROTEIN NEGATIVE (NEGATIVE); URINE UROBILINOGEN 0.2 mg/dL (0.2-1.0)
== END 2021-09-26 20:55 | disposition home or self-care (01) ==
LOC: JER 17:03
PROC: 3E0333Z Introduction of Anti-inflammatory into Peripheral Vein, Percutaneous Approach (ICD-10-PCS; principal; 2021-09-26)
PROC: 3E0333Z Introduction of Anti-inflammatory into Peripheral Vein, Percutaneous Approach (ICD-10-PCS; 2021-09-26)
DX: M54.50 Low back pain, unspecified (principal)
CPT/HCPCS: 36415; 80053; 81003; 84702; 84703; 85025; 87086; 96374; 96376; 99284-25